=== PATIENT | female | born 1985 | race Asian ===

== ENCOUNTER 2017-01-22 03:57 | Inpatient (IN) | payer SELFPAY ==
[~2017-01-22] VITALS: Ht 156 cm; Wt 62.0 kg
[2017-01-22] MEDS ORDERED: LACTATED RINGERS 1,000 ML IV SCH (04:04)
[2017-01-22] MEDS ORDERED: METHYLERGONOVINE 0.2 MG/ML AMP IM PRN ×2 (04:05→20:00)
[2017-01-22] MEDS ORDERED: AMPICILLIN 2,000 MG in NACL 0.9% MINI-BAG PLUS 100 ML IV SCH (04:05)
[2017-01-22] MEDS ORDERED: NALBUPHINE HYDROCHLORIDE 10 MG/ML VIAL IVP PRN (04:05)
[2017-01-22] MEDS ORDERED: CARBOPROST 250 MCG/ML AMP IM PRN (04:05)
[2017-01-22] MEDS ORDERED: OXYTOCIN 10 UNITS/ML VIAL IM SCH (04:05)
[2017-01-22] MEDS ORDERED: PROMETHAZINE 25 MG/ML VIAL IVP PRN (04:05)
[2017-01-22 04:13] VITALS: BP 126/88
[2017-01-22] MEDS ORDERED: OXYTOCIN 20 UNITS/LR PREMIX 1,000 ML IV SCH (04:30)
[2017-01-22] MEDS ORDERED: AMPICILLIN 2,000 MG VIAL ONE (04:56)
[2017-01-22 05:03] LABS: APPEARANCE,URINE SL CLOUDY (CLEAR); BILIRUBIN,URINE NEGATIVE (NEGATIVE); BLOOD, URINE TRACE-I (NEGATIVE); COLOR,URINE YELLOW (YELLOW); LEUKOCYTE ESTERASE ,URINE TRACE (NEGATIVE); NITRITE, URINE NEGATIVE (NEGATIVE); PH,URINE 6.5 (5.0-9.0); UGLUCOSE NEGATIVE (NEGATIVE)
[2017-01-22] MEDS ORDERED: IRON65TA11 PO (05:08)
[2017-01-22] MEDS ORDERED: PREN-546 PO (05:08)
[2017-01-22 05:19] LABS: ALBUMIN 2.7 g/dL (3.4-5.0); ANION GAP 15.2 (8-16); CARBON DIOXIDE 20.9 mmol/L (21-32); CREATININE 0.6 mg/dL (0.6-1.3); POTASSIUM 4.1 mmol/L (3.5-5.1); TOTAL BILIRUBIN 0.3 mg/dL (0.0-1.0)
[2017-01-22 05:31] LABS: BASOPHILS # (AUTO) 0.2 K/uL (0.00-0.22); BASOPHILS % (AUTO) 2.4 % (0.0-2.0); EOSINOPHILS # (AUTO) 0.2 K/uL (0-0.4); EOSINOPHILS % (AUTO) 1.8 % (0.0-4.0); HEMATOCRIT 38.6 % (36-48); HEMOGLOBIN 12.4 g/dL (12.0-16.0); LYMPHOCYTES # (AUTO) 2.1 K/uL (2.5-16.5); LYMPHOCYTES % (AUTO) 20.7 % (20.5-51.1); MEAN CORPUSCULAR HEMOGLOBIN 27 pg (27-31); MEAN CORPUSCULAR HGB CONC 32 g/dL (33-37); MEAN CORPUSCULAR VOLUME 85 fL (80-94); MONOCYTES # (AUTO) 0.5 K/uL (0.8-1.0); MONOCYTES % (AUTO) 4.5 % (1.7-9.3); NEUTROPHILS % (AUTO) 70.6 % (42.2-75.2); PLATELET COUNT (AUTO) 210 K/uL (140-450); RED BLOOD CELL COUNT(AUTO) 4.57 MIL/uL (4.20-5.40); RED CELL DISTRIBUTION WIDTH 15.3 % (11.6-13.7)
[2017-01-22] MEDS ORDERED: OXYTOCIN 20 UNITS/LR PREMIX 1,000 ML IV ONE (05:47)
[2017-01-22] MEDS ORDERED: NALBUPHINE HYDROCHLORIDE 10 MG/ML VIAL ONE (07:19)
[2017-01-22] MEDS ORDERED: PROMETHAZINE 25 MG/ML VIAL ONE (07:19)
[2017-01-22 07:54] LABS: RBC,URINE 0-5 (RARE) /HPF (0-5)
[2017-01-22] MEDS ORDERED: ROPIVACAINE 0.2%/NS PREMIX 250 ML EPI ONE (08:55)
--- NOTE | 2017-01-22 09:25 | NUR ---
PATIENT HAS BEEN SCREENED AND CATEGORIZED LOW NUTRITION RISK. PATIENT WILL BE SEEN WITHIN 7 DAYS OF ADMISSION. 01/29/17 CRISTO LOVE MBA, RD
[2017-01-22] MEDS: AMPICILLIN 1,000 MG in NACL 0.9% 50 ML IV SCH ×2 (11:29→15:24)
[2017-01-22] MEDS ORDERED: AMPICILLIN 1,000 MG VIAL ONE ×2 (11:30→15:20)
[2017-01-22] MEDS ORDERED: MORPHINE SULFATE 10 MG/ML SYR IVP PRN (13:20)
[2017-01-22] MEDS ORDERED: MORPHINE SULFATE 10 MG/ML SYR ONE (13:28)
[2017-01-22] MEDS ORDERED: BENZOCAINE/MENTHOL 20%-0.5% 60 GM CAN TP PRN (20:00)
[2017-01-22] MEDS ORDERED: oxyCODONE/APAP 5/325 MG 1 TAB TAB PO PRN (20:00)
[2017-01-22] MEDS ORDERED: OXYTOCIN 10 UNITS/ML VIAL IM PRN (20:00)
[2017-01-22] MEDS ORDERED: HYDROcodone/APAP 5/325 MG 1 TAB TAB PO PRN (20:00)
[2017-01-22] MEDS ORDERED: METHYLERGONOVINE 0.2 MG TAB PO PRN (20:00)
[2017-01-22] MEDS ORDERED: MEASLES, MUMPS, AND RUBELLA 1 VIAL SQVAC PRN (20:00)
[2017-01-22] MEDS ORDERED: TEMAZEPAM 15 MG CAP PO PRN (20:00)
[2017-01-22] MEDS ORDERED: ACETAMINOPHEN 650 MG/20.3 ML UDC PO PRN (20:00)
[2017-01-22] MEDS ORDERED: ceFAZolin 1,000 MG VIAL ONE (20:13)
[2017-01-22] MEDS ORDERED: ACETAMINOPHEN 325 MG TAB ONE (20:14)
[2017-01-22] MEDS ORDERED: DOCUSATE SOD/SENNA 50/8.6 MG 1 TAB PO SCH (21:00)
[2017-01-22] MEDS: LACTATED RINGERS 1,000 ML IV SCH (21:53)
[2017-01-23] MEDS ORDERED: ceFAZolin 1,000 MG VIAL ONE (04:06)
[2017-01-23] MEDS ORDERED: OXYTOCIN 20 UNITS/LR PREMIX 1,000 ML IV SCH (04:30)
[2017-01-23 06:25] LABS: HEMATOCRIT 28.1 % (36-48); HEMOGLOBIN 9.3 g/dL (12.0-16.0)
[2017-01-23] MEDS: LACTATED RINGERS 1,000 ML IV SCH (07:03)
== END 2017-01-24 14:25 | disposition home or self-care (01) | DRG 775 ==
LOC: MLD 03:57 → MFCC 23:15
PROVIDERS: ADMIT Obstetrics & Gynecology; ATTEND Obstetrics & Gynecology
PROC: 10E0XZZ Delivery of Products of Conception, External Approach (ICD-10-PCS; principal; 2017-01-22)
PROC: 10907ZC Drainage of Amniotic Fluid, Therapeutic from Products of Conception, Via Natural or Artificial Opening (ICD-10-PCS; 2017-01-22)
PROC: 0HQ9XZZ Repair Perineum Skin, External Approach (ICD-10-PCS; 2017-01-22)
PROC: 00HU33Z Insertion of Infusion Device into Spinal Canal, Percutaneous Approach (ICD-10-PCS; 2017-01-22)
PROC: 3E0R3CZ (ICD-10-PCS; 2017-01-22)
PROC: 3E0234Z Introduction of Serum, Toxoid and Vaccine into Muscle, Percutaneous Approach (ICD-10-PCS; 2017-01-24)
DX: O70.0 First degree perineal laceration during delivery (principal); Z23 Encounter for immunization; Z37.0 Single live birth; Z3A.39 39 weeks gestation of pregnancy
CPT/HCPCS: 36415; 51702; 80053; 81001; 85018; 85025; 86592; 86762; 86886; 86900; 86901; 87086; 87340; 87653-90; 90715; J0290; J0690; J2270; J2300; J2550; J2590; J2795; J7060; J7120